=== PATIENT | female | born 1985 | race Caucasian/White ===

== ENCOUNTER 2022-06-14 07:07 | Outpatient (CLI) | payer MEDICARE, OTHER, SELFPAY ==
--- NOTE | 2022-06-14 07:15 | CRLHL7_ITS ---
For Patients: As a result of the Cures Act, medical imaging exams and procedure reports are released immediately into your electronic medical record. You may view this report before your referring provider. If you have questions, please contact your health care provider. INDICATION: First trimester scan, establish dates. COMPARISON: None. TECHNIQUE: Real-time simmons-scale imaging of the pelvis was performed. FINDINGS: Sonographic imaging demonstrates a single living intrauterine gestation. The embryo demonstrates a regular cardiac rate measuring 159 beats per minute. The embryo`s crown-rump length measurement of 2.8 cm corresponds to a gestational age of 9 weeks 4 days with a sonographic due date of 01/13/2023. There is a normal-appearing yolk sac. There are no gross abnormalities noted within the embryo at this early state of development. The gestational sac has a normal appearance. There is a curvilinear perigestational hemorrhage measuring 2.7 x 1.0 x 9.1 cm. The amount of fluid within the sac appears appropriate for gestational age. The cervix is closed. The myometrium appears normal. The ovaries are not visualized. There are no suspicious fluid collections noted in the cul-de-sac. IMPRESSION: Single living intrauterine with sonographic gestational age measuring 9 weeks 4 days and sonographic due date of 01/13/2023. Curvilinear subchorionic hemorrhage measuring 2.7 x 1.0 x 9.1 cm. Dictated by Chito Saleem MD @ 06/14/2022 10:15:05 AM (Electronically Signed)
== END 2022-06-14 07:08 | disposition home or self-care (01) ==
PROVIDERS: PCP Registered Nurse; Visit Provider Registered Nurse
DX: O09.291 Supervision of pregnancy with other poor reproductive or obstetric history, first trimester (principal); Z3A.09 9 weeks gestation of pregnancy
CPT/HCPCS: 76817

== ENCOUNTER 2022-06-14 09:13 | Outpatient (CLI) | payer MEDICARE, SELFPAY ==
[2022-06-14 12:38] LABS: Hepatitis B Surface Antigen* Negative (Negative)
[2022-06-14 12:48] LABS: HIV 1/2/P24 Combo Screen* Negative (Negative)
[2022-06-14 12:55] LABS: Hepatitis C Virus Antibody* Negative (Negative)
[2022-06-14 14:23] LABS: Chlamydia DNA Amplified* Not Detected (No Detected); GC DNA Amplified* Not Detected (No Detected)
[2022-06-15 17:20] LABS: Rapid Plasma Reagin (RPR) Non Reactive (Non Reactive)
[2022-06-15 23:36] LABS: Rubella Antibody IgG 18.5 IU/mL
== END 2022-06-14 09:14 | disposition home or self-care (01) ==
PROVIDERS: PCP Registered Nurse; Visit Provider Registered Nurse
DX: Z34.91 Encounter for supervision of normal pregnancy, unspecified, first trimester (principal); Z86.39 Personal history of other endocrine, nutritional and metabolic disease; Z3A.09 9 weeks gestation of pregnancy
CPT/HCPCS: 84443; 86592; 86703; 86762; 86803; 86850; 86900; 86901; 87086; 87340; 87491; 87591

== ENCOUNTER 2022-08-08 11:47 | Outpatient (CLI) | payer MEDICARE, SELFPAY ==
[2022-08-10 10:22] LABS: Dating Other; Family Hx Neural Tube Defect No; Insulin Req Maternal Diabetes No; Maternal Age At Delivery 37.7 yr; Maternal Race Nonblack; Maternal Screen Interpretation Screen Neg; Patient's AFP 40 ng/mL; Smoking No
== END 2022-08-08 11:48 | disposition home or self-care (01) ==
LOC: NFLDREF 11:52
PROVIDERS: PCP Registered Nurse; Visit Provider Advanced Practice Midwife
DX: Z34.92 Encounter for supervision of normal pregnancy, unspecified, second trimester (principal); Z3A.17 17 weeks gestation of pregnancy
CPT/HCPCS: 81511

== ENCOUNTER 2022-08-30 13:02 | Outpatient (CLI) | payer MEDICAID, SELFPAY | END 2022-08-30 13:03 | disposition home or self-care (01) | PROVIDERS: PCP Registered Nurse; Visit Provider Pediatrics Neonatal-Perinatal Medicine | DX: O09.522 Supervision of elderly multigravida, second trimester (principal); Z3A.20 20 weeks gestation of pregnancy | CPT/HCPCS: 76811 ==

== ENCOUNTER 2022-10-20 08:06 | Outpatient (CLI) | payer MEDICAID, SELFPAY ==
[2022-10-20 08:23] LABS: Glucose Fasting Check 96 mg/dl (60-115)
[2022-10-20 12:15] LABS: Glucose GTT-Gestational 3 Hr 76 mg/dl (70-140)
[2022-10-20 12:15] LABS: Glucose 1 Hour Gest 219 mg/dl (70-180)
== END 2022-10-20 08:07 | disposition home or self-care (01) ==
LOC: NFLDREF 08:06
PROVIDERS: PCP Registered Nurse; Visit Provider Advanced Practice Midwife
DX: O24.419 Gestational diabetes mellitus in pregnancy, unspecified control (principal); Z3A.27 27 weeks gestation of pregnancy
CPT/HCPCS: 82951; 82952

== ENCOUNTER 2022-11-24 11:18 | Outpatient (CLI) | payer MEDICAID, SELFPAY ==
[2022-11-26 18:37] LABS: Rapid Plasma Reagin (RPR) Non Reactive (Non Reactive)
== END 2022-11-24 11:19 | disposition home or self-care (01) ==
LOC: NFLDREF 11:18
PROVIDERS: PCP Registered Nurse; Visit Provider Advanced Practice Midwife
DX: O09.513 Supervision of elderly primigravida, third trimester (principal); Z3A.32 32 weeks gestation of pregnancy
CPT/HCPCS: 84443; 86592

== ENCOUNTER 2022-12-14 12:20 | Inpatient (IN) | payer MEDICAID, SELFPAY ==
[2022-12-14] VITALS (28 sets, daily range): BP systolic 101–129; BP diastolic 55–71; PULSE 63–89; RESP 16; TEMP 36.6–36.8; O2SAT 96–100; BMI 33.7
--- NOTE | 2022-12-14 10:46 | PM.OBLDTN ---
OB - Triage/Final Diagnosis Visit Information Narrative: The patient is a [] year old [] para [] at [] weeks gestation by [], who presents with []. [] Evaluation Vital signs: Vital Signs - 24 hr 12/14/22 09:39 Pulse Rate 80 Blood Pressure 114/57 L
--- NOTE | 2022-12-14 12:16 | P.OBHP_ITS ---
OB - H&P: HPI Labor/Induction History of Present Illness Date Seen: 12/14/22 Chief Complaint: Lilian is a 37 year old 7 para 3 at 35.2 weeks gestation by LMP, who presents with contractions and vaginal bleeding noted this morning when she woke up. She had a small dinner plate size amount of bleeding on her clothes and then passed a small clot or mucus plug on the toilet, she said the toilet had blood in it as well. On admission to triage she was 2cm, 50% and high, she was observe d and rechecked and had changed to 4cm, 60% and ballotable. position was confirmed by US by Dr Meyers, fetus was transverse at last OB visit. Partner at bedside for support. Patient and partner are both deaf, automotive accessory installer also at bedside. Chief complaint: Maternity : 7 Para: 3 Date of last menstrual period: 04/11/22 Estimated date of delivery: 01/16/23 Gestational age based on last menstrual period: 35 History of Present Dating criteria: based on LMP care: good care Ultrasounds: normal 1st trimester US and normal mid trimester US complications: labor and gestational diabetes (diet controlled) Narrative: Patient has had an elevated TSH in , was prescribed Synthroid but did not start medication. Labs Blood type: A (+) positive Rubella: immune RPR/VDLR: nonreactive GBS status: unknown (Has history of GBS in all other pregnancies, agrees to treat) HBsAG: negative Review of Systems Status of ROS: Reports: 10 or more systems reviewed and unremarkable except as noted in History and below : Reports: vaginal bleeding Meds Home Medications and Allergies Home Medications Medication Instructions Recorded Confirmed Type prenat.vits,john,kbz-lcik-gdtwy 1 tab PO QDAY 06/14/22 12/06/22 History Allergies Allergy/AdvReac Type Severity Reaction Status Date / Time No Known Drug Allergies Allergy Verified 12/06/22 09:55 OB - H&P: Exam Physical Exam: Vital signs: Pulse BP 80 114/57 L 12/14/22 09:39 12/14/22 09:39 Constitutional: Constitutional: no acute distress Routine HEENT Exam: Head: Present normal inspection and normocephalic Eye: Present normal appearance ENT: Present normal exam Routine Neck Exam: Neck: Present full ROM Routine Respiratory Exam: Respiratory: Present CTA bilaterally Routine Cardiovascular Exam: Cardiovascular: RRR, S1 and S2 Routine Abdominal Exam: Abdominal: Absent tenderness (Gravid) Detailed Labor and Delivery Exam: Patient Gravid: Yes Dilation (cm): 4 Effacement (%): 60 Tachysystole: No Fetus (Single): Amniotic Membrane Status: intact Heart Rate Baseline: 130 Monitor Accelerations: Present Monitor Decelerations: None Site Medical Director Variability: Moderate (6-25) Routine Back/Spine/Pelvis Exam: Back/Spine: full ROM Routine Skin Exam: Present intact Routine Neurological Exam: Present alert and oriented X3 Routine Psychiatric Exam: Present normal affect Additional findings: Additional findings: Patient has congenital deafness OB - Problem Based A/P Additional Plan (1) 35 weeks gestation of : Status: Acute (2) Pain during labor: Status: Acute (3) contractions: Status: Acute Plan at 35.2 weeks labor History of GBS with previous pregnancies Gestational diabetes, diet controlled Mildly elevated TSH in Advance Maternal age Congenital Deafness Plan: 1. Admit for labor 2. Continuous monitoring per protocol 3. Antibiotics for unknown GBS status 4. Blood sugar monitoring per protocol 5. Patient is a candidate for analgesia of choice, undecided if she wants to have an unmedicated 6. Expectant management at this time 7. Anticipate Delivery/Labor/Induction Plan Plan: expectant management
[2022-12-14] MEDS: LACTATED RINGERS 1000 ML 1,000 ML 125 ML IV (13:16)
[2022-12-14] MEDS: AMPICILLIN 2 GM in 0.9 % SODIUM CHLORIDE Mini-bag 100 ML IVPB (13:18)
[2022-12-14 14:42] LABS: SARS PCR* Negative SARS-CoV-2 (Negative)
[2022-12-14] MEDS: AMPICILLIN 1 GM in 0.9 % SODIUM CHLORIDE Mini-bag 100 ML IVPB ×2 (17:27→21:35)
[2022-12-14 18:55] LABS: Amnisure Rom* POSITIVE
[2022-12-14] MEDS: OXYTOCIN 30 unit/500 ML in NS 30 UNIT/500 ML BAG IVPB (19:32)
--- NOTE | 2022-12-14 21:37 | PM.OBPNL ---
Subjective Time Seen by Provider: 21:38 Date Seen: 12/14/22 Narrative: Lilian is coping well with labor pain/contractions. She is currently being supported by her partner and an tobacco sprayer. She was previously admitted for labor, and also c/o bleeding when she woke up this am. Throughout the day, she has felt like there was increased fluid and mucus leaking. Amnisure done by RN, positive. Options of expectant management, pitocin augmentation and possible AROM for forebag (if safe) discussed. Risks and benefits of these options reviewed. Pt and partner agreed to pitocin augmentation. She would like to continue with non-pharmacologic methods for comfort and pain management.??CNM called to bedside a few hours after pitocin augmentation started. Pt c/o of increased pressure. Objective Exam: VSS, afebrile General Appearance:? Calm, cooperative. No acute distress. ? Psychiatric Exam: Alert and oriented, appropriate affect Abdomen: Gravid Ctx: ?Q 2-4 min apart. ? Moderate FHTs: Baseline: 125 Variability: moderate Accels: present Decels: none SVE: 5/70/-2 Membranes: SROM, likely since this am, but unsure. ? Vital Signs: Last Vital Signs Temp 98.1 F 12/14/22 20:18 Pulse 74 12/14/22 21:33 Resp 16 12/14/22 20:18 BP 129/63 12/14/22 21:33 Assessment Heart Rate Baseline: 130 Plan Plan: Assessment:?? 37yo at 35.2 gestation?? Patient is coping well with challenges of labor.?? Labor type: Spontaneous, Early labor w/ pitocin augmentation complicated by: -Mildly elevated TSH in -Advance Maternal age -Congenital Deafness -Gestational diabetes, diet controlled Labor complications: - labor -History of GBS with previous pregnancies, assumed positive again ? Plan:?? Continue with routine intrapartum cares as ordered.?? Patient encouraged to move/change positions to promote physiologic labor and .?? Nonpharmacologic comfort measures per patient preference at this time. Continue with GBS prophylaxis per protocol Blood sugar checks per protocol Will have peds present at delivery r/t status. Anticipate progress to NVD.
[2022-12-14] MEDS: LACTATED RINGERS 1000 ML 1,000 ML 900 ML IV (23:00)
[2022-12-14] MEDS: ROPIVACAINE 0.2% 100 ml 100 ML 10 MG EPIDURAL (23:14)
--- NOTE | 2022-12-14 23:26 | P.ANBPRC_ITS ---
[facility] Medical History Ectopic History of gestational diabetes in prior , currently Miscarriage Surgical History History of cholecystectomy Social History Smoking Status: Never smoker Little interest or pleasure in doing things: not at all Feeling down, depressed, or hopeless: not at all Meds Home Medications and Allergies Home Medications Medication Instructions Recorded Confirmed Type prenat.vits,john,vvs-axse-pitkn 1 tab PO QDAY 06/14/22 12/06/22 History Allergies Allergy/AdvReac Type Severity Reaction Status Date / Time No Known Drug Allergies Allergy Verified 12/06/22 09:55 Results Labs Labs: Laboratory Results - last 24 hr 12/14/22 12/14/22 13:45 18:00 Membrane Rupture POSITIVE SARS-CoV-2 (PCR) Negative SARS-CoV-2 Vital Signs Vital Signs: Last Vital Signs Temp 98.2 F 12/14/22 21:33 Pulse 84 12/14/22 23:25 Resp 16 12/14/22 21:33 BP 112/63 12/14/22 23:25 Pulse Ox 99 12/14/22 23:06 Weight: 83.733 kg Height: 157.48 cm Anesthesia Procedures Epidural Insertion Patient Location: OB Start Time: 22:30 Stop Time: 23:30 Start Date: 12/14/22 Stop Date: 12/14/22 Reason for Block: procedure for pain Patient Position: sitting Performed By: Ar Steven Preanesthetic Checklist: IV checked, risks and benefits discussed, surgical consent, monitors and equipment checked, pre-op evaluation, timeout performed and anesthesia consent Prep: chlorhexidine gluconate Monitoring: blood pressure monitoring, continuous pulse oximetry and heart rate Approach: midline Vertebral Space: lumbar (1-5) Epidural Technique: ROBBY saline Needle Type: Tuohy needle Injection Technique: continuous catheter Needle gauge: 17 Needle Length (cm): 10 cm Needle Insertion Depth (cm): 8 Catheter Gauge: 19 Catheter Type: multi-orifice Catheter at skin depth (cm): 14 Test Dose Result: negative and lidocaine 1.5% with epinephrine 1 to 200,000 Events: cerebrospinal fluid (CSF at L2-3, Catheter inserted at L3-4)
[2022-12-14] MEDS: PHENYLEPHRINE 100 MCG/ML SYRINGE IVP (23:41)
[2022-12-15] VITALS (52 sets, daily range): BP systolic 89–125; BP diastolic 42–75; PULSE 61–96; RESP 16–18; TEMP 36.3–36.8; O2SAT 99
[2022-12-15] MEDS: LACTATED RINGERS 1000 ML 1,000 ML 125 ML IV ×3 (00:06→07:01)
[2022-12-15] MEDS: AMPICILLIN 1 GM in 0.9 % SODIUM CHLORIDE Mini-bag 100 ML IVPB ×2 (01:55→06:02)
[2022-12-15] MEDS: PHENYLEPHRINE 100 MCG/ML SYRINGE IVP ×2 (01:56→02:58)
[2022-12-15] MEDS: ACETAMINOPHEN 500 MG TABLET 1000 MG PO ×3 (06:14→19:21)
[2022-12-15] MEDS: ROPIVACAINE 0.2% 100 ml 100 ML 12 MG EPIDURAL (06:58)
--- NOTE | 2022-12-15 08:48 | W.PM.OBVAGDE ---
OB Procedure Vag Delivery Mother Details Mother Details: Lilian is a 37 year-old, 7, Para 3, admitted on 12/14/22 at 35 3/7 Days gestation. : 7 Para: 4 Weeks Gestation: 35.3 Additional Details Amniotic Membrane Status: SROM Amniotic Membrane Rupture Date: 12/14/22 Amniotic Membrane Rupture Time: 18:30 ( Forebag at 0750) Amniotic Membrane Fluid Description: Clear Analgesia/Anesthesia Type: Epidural Waterbirth: No Pitcoin: Yes (Augmentation and AMTSL) Intrapartal Events: None Pushin:03 Heart: heart tones during second stage were reassuring with patient urgently feeling need to push it was difficult to obtain continuous monitoring. When patient began pushing, tracing was reassuring and progessed to delivery quickly. Delivery Details Delivery Date: 12/15/22 Delivery Time: 08:05 Route of delivery: Infant Gender: Male Infant Viability: Alive; Heart Rate Present Position at Delivery: OA Delivery Details: Patient was admitted for vaginal bleeding and contractions with suspicion for labor. She progressed with augmentation. She SROM'ed at 1830 with clear fluid. Nursing staff was unable to get ahold of primary CNM, I was called as patient was feeling pressure and need to push. I arrived and assumed care of the patient just as patient began pushing.Patient was complete at 0754 and pushing at 0803. Father requested to assist with delivery. He donned gloves and placed his hands below mine. Security And Compliance Project Manager was present at delivery for gestation. of a viable male at 0805, in semifowlers on the bed. Vertex delivered OA. No nuchal cord or shoulder. Body delivered easily and without incident.Father assisted in delivering and bringing baby up to mom's lower abdomen with a vigorous cry. Cord was clamped and cut at 60 seconds per peds request. APGARS were 8 at one minute and 9 at five minutes respectively. Mouth was bulb suctioned. Intact placenta with a 3 vessel cord delivered spontaneously at 0807. Fundus firm. Intact perineum. QBL 400 cc. Mother and baby stable; mother plans to breastfeed. Infant weight pending. Placenta sent to pathology for . 1 Minute Interval Total Score: 8 5 Minute Interval Total Score: 9 Additional Details Shoulder Dystocia: No Placenta Delivery Time: 08:07 Placental Delivery Description: Spontaneous Procedure Done: Global Laceration: None Blood Loss Measurement Type: QBL Bakri Used: No Sponge/Need Count Correct: Yes Cord Vessel Description: 3 Vessels
[2022-12-15] MEDS: IBUPROFEN 600 MG TABLET PO ×2 (09:19→15:09)
[2022-12-15] MEDS: LIDOCAINE 5% PATCH 1 PATCH TRANSDERMA ×2 (11:51→20:52)
[2022-12-15] MEDS: CYCLOBENZAPRINE HCL 10 MG TABLET 5 MG PO (12:50)
[2022-12-15] MEDS: CYCLOBENZAPRINE HCL 10 MG TABLET PO (20:52)
[2022-12-16 00:21] VITALS: BP 107/69; PULSE 59; RESP 16; TEMP 36.8; O2SAT 94
[2022-12-16] MEDS: IBUPROFEN 600 MG TABLET PO ×2 (02:24→14:26)
[2022-12-16 06:44] LABS: Hemoglobin* 10.3 gm/dL (12.0-16.0)
[2022-12-16] MEDS: ACETAMINOPHEN 500 MG TABLET 1000 MG PO ×2 (08:22→20:00)
[2022-12-16] MEDS: CYCLOBENZAPRINE HCL 10 MG TABLET PO ×3 (08:23→23:48)
[2022-12-16] MEDS: DOCUSATE SODIUM 100 MG CAPSULE PO (08:24)
--- NOTE | 2022-12-16 08:55 | P.OBPN_ITS ---
OB - PN:Subj Subjective Date Seen: 12/16/22 Patient comments OB post-: pain well controlled, tolerating diet and flatus present infant status: (pumping, baby on IV abx) feeding status: expressed and bottle feeding Narrative: The patient feels well.? The pain is well controlled with current medications.? She has no new complaints.? Urinary output is adequate and she is voiding wi thout difficulty.? Has a good appetite, is tolerating a general diet, is passing flatus, and has not had a bowel movement.? Has small amount of rubra lochia.? She is ambulating well.?She is still having a significant amount of neck pain although she feels that it is improving. She has increased pain she she turns her neck when she is standing and turn her neck or bends over. In bed she is able to turn her head with minimal amount of pain. She is using Flexeril, heat, and ice to help with the pain. Encouraged her to see a chiropractor after discharge. OB - PN: Obj Exam Physical Exam: Vital signs: Temp Pulse Resp BP Pulse Ox O2 Del Method 98.3 F 59 L 16 107/69 94 12/16/22 00:21 12/16/22 00:21 12/16/22 00:21 12/16/22 00:21 12/16/22 00:21 12/16/22 00:21 Narrative: GENERAL APPEARANCE:? normal affect, alert, no distress? MOOD:? appropriate? CHEST:? clear to auscultation and percussion? HEART:? regular rate and rhythm? ABDOMEN:? soft, non-tender the uterine fundus is [] and is appropriate for the stage of recovery.? PERINEUM:? mild edema of the perineum, there is a [] that is healing well.? EXTREMITIES:? normal and no edema? OB - PN: Obj Data Labs Labs: Laboratory Results - last 24 hr 12/16/22 06:20 Hgb 10.3 L OB - PN: A/P Vaginal Delivery Assessment and Plan (1) Congenital deafness: Status: Acute (2) Advanced maternal age (AMA) in : Status: Acute (3) Gestational diabetes: Status: Acute (4) care following vaginal delivery: Status: Acute (5) Lactating mother: Status: Acute Plan day: 1 Plan: routine care
[2022-12-16 15:00] VITALS: BP 115/72; PULSE 70; RESP 18; TEMP 36.9; O2SAT 97
[2022-12-16 17:29] VITALS: BP 110/72; PULSE 62; RESP 16; TEMP 36.6; O2SAT 97
[2022-12-16 23:45] VITALS: BP 103/65; PULSE 62; RESP 16; TEMP 36.8
[2022-12-16] MEDS: LIDOCAINE 5% PATCH 1 PATCH TRANSDERMA (23:58)
[2022-12-17] MEDS: ACETAMINOPHEN 500 MG TABLET 1000 MG PO ×2 (06:13→12:12)
[2022-12-17 08:00] VITALS: BP 109/71; PULSE 62; RESP 16; TEMP 36.8; O2SAT 94
[2022-12-17] MEDS: CYCLOBENZAPRINE HCL 10 MG TABLET PO (08:41)
[2022-12-17] MEDS: IBUPROFEN 600 MG TABLET PO ×2 (08:41→14:39)
[2022-12-17] MEDS: DOCUSATE SODIUM 100 MG CAPSULE PO (08:41)
--- NOTE | 2022-12-17 08:46 | PM.OBDSVD1 ---
DS: Providers Provider Date Seen: 12/17/22 Date of admission: 12/14/22 12:20 Primary care physician: Magaly Carbajal CNP Admitting Clinician: Irais Che CNM Attending Physician on discharge: Ying Summers CNM with LAQUITA Gomez Date of Discharge: 12/17/22 DS: Diagnosis Discharge Diagnosis (1) care and examination immediately after delivery: Status: Acute (2) Lactating mother: Status: Acute (3) Gestational diabetes: Status: Acute Exam Narrative: Exam Narrative: GENERAL APPEARANCE:? normal affect, alert, no distress? MOOD:? appropriate? CHEST:? clear to auscultation? HEART:? regular rate and rhythm? ABDOMEN:? soft, non-tender the uterine fundus is firm At Umbilicus, Midline and is appropriate for the stage of recovery.? PERINEUM:? mild edema of the perineum, there is not a Perineal Laceration.? EXTREMITIES:? normal and trace edema? Const: Vital Signs, click to edit/add: Vital Signs - 24 hr 12/16/22 15:00 12/16/22 17:29 12/16/22 23:45 Temperature 98.4 F 97.9 F 98.2 F Pulse Rate [Blood Pressure Cuff] 70 62 62 Respiratory Rate 18 16 16 Blood Pressure [Le ft Arm] 115/72 110/72 103/65 Pulse Oximetry 97 97 Oxygen Delivery Me thod Room Air Room Air Room Air Documenting provider has reviewed patient's vital signs: yes OB - DS: Summary Hospital Course Hospital Course: Lilian is a 37 year old G 7 now P 4 at 35.3 weeks gestation that was admitted to the Center on 12/14/22 for labor. She had an uncomplicated vaginal delivery. She delivered a viable female infant. She is breast feeding and pumping. The patient feels well.?The pain is well controlled with current medications. She has no new complaints.? Urinary output is adequate and she is voiding without difficulty. Has a good appetite, is tolerating a general diet, is passing flatus, and has not yet had a bowel movement.? Has small amount of rubra lochia.?She is ambulating well. She is and pumping for her . She does desire to continue to work on her skills and see today. Peripartum Data delivery method: Vaginal Laceration description: None complications: none Gender: Male Discharge Plan: Home Status at Discharge Functional status at discharge: independent ambulation Overall status at discharge: patient is progressing back to baseline Time Spent with Patient Time attestation: Total time spent providing and/or coordinating discharge services: Time spent: Less than 30 minutes Discharge Plan Discharge Disposition: Home, Self-Care Date of Admission: 12/14/22 12:20 Attending Provider on Discharge: Ying Summers Primary Care Provider: Magaly Carbajal Condition: Stable Anticipated Discharge Date/Time: 12/17/22 12:00 Discharge Medications: New cyclobenzaprine 10 mg Tablet 10 mg PO TID PRNQty: 15 0RF acetaminophen 500 mg Tablet 1,000 mg PO Q6H PRN (Reason: pain/fever) Qty: 0 0RF ibuprofen 600 mg Tablet 600 mg PO Q6H PRNQty: 60 0RF Continued prenat.vits,john,txi-wmzs-bulmw Tablet 1 tab PO QDAY Discontinued (DME) lancets Misc See Rx Instructions .MEDSUPPLY Qty: 100 3RF Rx Instructions: Test blood sugar 4 times daily. (DME) Test Strips Misc See Rx Instructions .MEDSUPPLY Qty: 100 3RF Rx Instructions: Test blood sugar 4 times daily. (DME) Blood Glucose Meter Misc See Rx Instructions .MEDSUPPLY Qty: 1 0RF Rx Instructions: As directed Discharge Orders: Discharge Order (Routine); Ordered 12/17/22 Ordered By: Ying Summers Patient Education: OB Over the Counter Medication Information, OB Vaginal/Breast Feeding Additional Instructions: Discharge instructions were reviewed with the patient including signs and symptoms of infection and home going medications. Off Work or School for 6 weeks. Follow Up with [facility] in 2 and 6 weeks at [facility] clinic. consultation services are available to all mothers and babies for the first year after delivery.? To make an appointment, please call [phone]. Activity Level: Activity as Tolerated Discharge Diet: Regular Follow Up Appointments: [facility] [Provider Group] Forms: MyHealth Info Instructions
[2022-12-17] MEDS: OXYCODONE 5 MG TABLET PO (11:56)
--- NOTE | 2022-12-17 16:01 | P.ANBPRC_ITS ---
[facility] Medical History Ectopic History of gestational diabetes in prior , currently Miscarriage Surgical History History of cholecystectomy Social History Smoking Status: Never smoker Little interest or pleasure in doing things: not at all Feeling down, depressed, or hopeless: not at all Meds Home Medications and Allergies Home Medications Medication Instructions Recorded Confirmed Type prenat.vits,john,oxs-mutv-oayyg 1 tab PO QDAY 06/14/22 12/16/22 History Allergies Allergy/AdvReac Type Severity Reaction Status Date / Time No Known Drug Allergies Allergy Verified 12/06/22 09:55 Results Vital Signs Vital Signs: Last Vital Signs Temp 98.2 F 12/17/22 08:00 Pulse 62 12/17/22 08:00 Resp 16 12/17/22 08:00 BP 109/71 12/17/22 08:00 Pulse Ox 94 12/17/22 08:00 O2 Del Method 12/17/22 08:00 Weight: 83.733 kg Height: 157.48 cm Anesthesia Procedures Epidural Blood Patch Patient Location: OB Start Time: 15:40 Stop Time: 16:00 Reason for Blood Patch: spinal headache CASING WRINGER OPERATOR: Abdulkadir Vogel CRNA Preanesthetic Checklist: IV checked, site marked, risks and benefits discussed, monitors and equipment checked, pre-op evaluation, timeout performed and anesthesia consent Patient Symptoms: postural headache and neck stiffness Pain (1-10): 7 Pain Frequency: continuously Quality of Pain: aching, pressure and throbbing Pain exacerbated by: standing Pain Made Worse: head movement Pain made better: darkness, position change and rest Diagnosis of PDPH: Yes Volume of Blood Injected (mL): 20 Patient Position: sitting Prep: Chloraprep Monitoring: cont pulse oximetry Approach: midline Location: L3-4 Injection Technique: ROBBY saline Injection Method: Touhy needle Needle Gauge Used: 17 Needle Length (cm): 10 cm Catheter Type: none Notes: ROBBY at 6cm. 20ml of blood injected. Patient tolerated procedure well, no complications noted
== END 2022-12-17 18:19 | disposition home or self-care (01) | DRG 807 ==
LOC: OB OUT 12-21 09:10
PROVIDERS: Advanced Practice Midwife; Admitting Provider Advanced Practice Midwife; PCP Registered Nurse; Visit Provider Advanced Practice Midwife
DX: O60.14X0 Preterm labor third trimester with preterm delivery third trimester, not applicable or unspecified (principal); Z37.0 Single live birth; O24.420 Gestational diabetes mellitus in childbirth, diet controlled; Z3A.35 35 weeks gestation of pregnancy; H90.3 Sensorineural hearing loss, bilateral; R94.6 Abnormal results of thyroid function studies; O89.4 Spinal and epidural anesthesia-induced headache during the puerperium
CPT/HCPCS: 01967; 36415; 62273; 82962; 84112; 85018; 87635; 88307; 99213; A9270; J0290; J2370; J2795; J7120; S0020

== ENCOUNTER 2023-06-01 08:49 | Outpatient (CLI) | payer MEDICAID, SELFPAY | END 2023-06-01 08:50 | disposition home or self-care (01) | PROVIDERS: Visit Provider Physician Assistant | DX: Z01.419 Encounter for gynecological examination (general) (routine) without abnormal findings (principal); Z13.29 Encounter for screening for other suspected endocrine disorder; Z13.6 Encounter for screening for cardiovascular disorders; Z86.32 Personal history of gestational diabetes | CPT/HCPCS: 80061; 84439; 84443 ==

== ENCOUNTER 2023-08-25 10:21 | Emergency (ER) | payer MEDICAID, SELFPAY ==
[2023-08-25 10:53] VITALS: BP 127/81; PULSE 73; RESP 18; TEMP 36.4; O2SAT 99; BMI 30.2
--- NOTE | 2023-08-25 11:29 | CRLHL7_ITS ---
For Patients: As a result of the Cures Act, medical imaging exams and procedure reports are released immediately into your electronic medical record. You may view this report before your referring provider. If you have questions, please contact your health care provider. INDICATION: Pain. FINDINGS: AP view of the pelvis was obtained. There is no acute fracture or dislocation. The hip joint space compartments are maintained. IMPRESSION: No acute bone abnormality. Dictated by Cody Anderson MD @ 08/25/2023 12:27:07 PM (Electronically Signed)
--- NOTE | 2023-08-25 11:30 | ED_ITS ---
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 She notes 2 days of pain in the right SI area without specific injury. Initially it was mild in intensity but has worsened since then to the point that walking is difficult. She has pain in that area with movement of the right or left leg. Pain does not radiate. She has not had fevers or systemic complaints. Had a baby a couple of months ago. Related Data Previous Rx's Medication Instructions Recorded acetaminophen 500 mg tablet 1,000 mg (2 x 500 mg) PO Q6H PRN 12/17/22 pain/fever #0 tabs ibuprofen 600 mg tablet 600 mg PO Q6H PRN #60 tabs 12/17/22 levothyroxine 50 mcg tablet 50 mcg PO QDAY #90 tabs 06/01/23 Allergies Allergy/AdvReac Type Severity Reaction Status Date / Time No Known Drug Allergies Allergy Verified 06/01/23 08:38 Review of Systems Status of ROS: Reports: 6 or more systems reviewed and unremarkable except as noted in History and below [facility] Medical History History of gestational diabetes ?Z86.32 - Personal history of gestational diabetes (ICD-10) Elevated TSH ?R79.89 - Other specified abnormal findings of blood chemistry (ICD-10) Miscarriage ?O03.9 - Complete or unspecified spontaneous without complication (ICD-10) Ectopic ?O00.90 - Unspecified ectopic without intrauterine (ICD- 10) Surgical History History of cholecystectomy ?Z90.49 - Acquired absence of other specified parts of digestive tract (ICD- 10) Family History Mother Heart disease Thyroid disease Grandmother Breast cancer Diabetes 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 Walking for exercise Engaged to be Nonsmoker Alcohol use: 1-2 on weekends No illicit drug use What is your current living situation?: I presently have a place to live Problems where you live: no known problems In the past 12 months, utilities in danger of being shut off: no In past 12 months, lack of transportation kept you from medical appts, meetings, work, or getting things needed for daily living: no In the past 12 mos, have been you worried that your food would run out before you had money to buy more?: never true In the past 12 mos, the food you bought just didn't last and you didn't have money to buy more?: never true Smoking Status: Never smoker Do you use any of these nicotine containing products: None How often do you have a drink containing alcohol: 2-4 times a month How many standard drinks containing alcohol do you have on a typical day: 1 or 2 How often do you have six or more drinks on one occasion: Never AUDIT-C Alcohol total score: 2 Non-prescribed substance use: denies use How often does anyone, including family, friends and others, physically hurt you : never How often does anyone, including family, friends and others, insult or talk down to you: never How often does anyone, including family, friends and others, threaten you with harm: never How often does anyone, including family, friends and others, scream or curse at you: never Little interest or pleasure in doing things: not at all Feeling down, depressed, or hopeless: not at all service: No Exam Narrative: Exam Narrative: Vital signs reviewed In general, alert, nontoxic woman. She appears comfortable lying still in bed. Back: she has tenderness over the SI joint, no other lumbar or muscular tenderness. Extremities: No edema, erythema, tenderness. Range of motion of the right hip is full, she has a little bit of pain with passive range of motion at the extreme of flexion. She is able to lift both legs off the bed but complains of pain. Neurologic: Strength is 5 of 5 in bilateral lower extremities, sensation intact to light touch. Const: Vital Signs, click to edit/add: Vital Signs - 24 hr 08/25/23 10:53 Temperature 97.6 F Pulse Rate [Pulse Oximeter] 73 Respiratory Rate 18 Blood Pressure [Ri ght Upper Arm] 127/81 Pulse Oximetry 99 Oxygen Delivery Me thod Room Air Documenting provider has reviewed patient's vital signs: yes Course Course ED Course: Will go ahead and check a pelvis x-ray. Overall she seems to have inflammation at the SI joint without evidence of sciatica. Assuming x-rays are normal, recommend use of ibuprofen 400 mg plus Tylenol 1000 mg 3 times daily. Will provide oxycodone #8. Advise symptoms will likely improve over the next few days. For persistent symptoms follow up primary care. Return to the emergency department for acute worsening, radiating pain, fevers, or other worsening. X-ray of the pelvis is negative by my review. Radiology read pending. Recommendations as above. Vital Signs Vital signs: Initial Vital Signs Temperature 97.6 F 08/25/23 10:53 Temperature Source Temporal Artery Scan 08/25/23 10:53 Pulse Rate 73 08/25/23 10:53 Pulse Strength 0+ Absent 08/25/23 10:53 Respiratory Rate 18 08/25/23 10:53 Blood Pressure 127/81 08/25/23 10:53 Blood Pressure Mean 96 08/25/23 10:53 Blood Pressure Position Supine 08/25/23 10:53 Pulse Oximetry 99 08/25/23 10:53 Oxygen Delivery Method Room Air 08/25/23 10:53 Vital Signs Temperature 97.6 F 08/25/23 10:53 Pulse Rate 73 08/25/23 10:53 Respiratory Rate 18 08/25/23 10:53 Blood Pressure 127/81 08/25/23 10:53 Pulse Oximetry 99 08/25/23 10:53 Oxygen Delivery Method Room Air 08/25/23 10:53 Temperature 97.6 F 08/25/23 10:53 Pulse Rate 73 08/25/23 10:53 Respiratory Rate 18 08/25/23 10:53 Blood Pressure 127/81 08/25/23 10:53 Pulse Oximetry 99 08/25/23 10:53 Oxygen Delivery Method Room Air 08/25/23 10:53 Discharge Plan Discharge Clinical Impression: SI (sacroiliac) joint inflammation Patient Disposition: Home, Self-Care Condition: Stable Instructions: Sacroiliitis (ED) Additional Instructions: Your x-ray today looks normal. Take ibuprofen 400 mg plus Tylenol 1000 mg 3 times daily wit food for the next several days. Oxycodone if needed for uncontrolled pain. Ice may be helpful as well. Anticipate that this will improve gradually over the next several days to week. If pain is not improving, follow-up with primary care. For acute worsening, fever, radiating pain etcetera return to the emergency department. Prescriptions: No Action acetaminophen 500 mg Tablet 1,000 mg PO Q6H PRN (Reason: pain/fever) Qty: 0 0RF ibuprofen 600 mg Tablet 600 mg PO Q6H PRNQty: 60 0RF levothyroxine 50 mcg tablet 50 mcg PO QDAY Qty: 90 0RF Follow Up/Referrals: Provider,Not a Local [Primary Care Provider] - Stand Alone Forms: [employer] Info Instructions
== END 2023-08-25 12:04 | disposition home or self-care (01) ==
PROVIDERS: Emergency Provider Emergency Medicine
DX: M46.1 Sacroiliitis, not elsewhere classified (principal)
CPT/HCPCS: 72170; 99283; 99284

== ENCOUNTER 2024-06-03 16:09 | Outpatient (CLI) | payer MEDICAID, SELFPAY | END 2024-06-03 16:10 | disposition home or self-care (01) | PROVIDERS: Visit Provider Registered Nurse | DX: Z01.419 Encounter for gynecological examination (general) (routine) without abnormal findings (principal); R53.83 Other fatigue; E66.9 Obesity, unspecified; E03.9 Hypothyroidism, unspecified; Z13.9 Encounter for screening, unspecified; Z13.6 Encounter for screening for cardiovascular disorders; Z13.21 Encounter for screening for nutritional disorder; Z13.29 Encounter for screening for other suspected endocrine disorder | CPT/HCPCS: 82306; 84439; 84443 ==